=== PATIENT | female | born 2005 | race Caucasian/White ===

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

== ENCOUNTER → 2025-06-13 | Outpatient (REF) | payer OTHER | LOC: M SFHCPLAZ 12:41 | PROVIDERS: ATTEND Nurse Practitioner Family | DX: R05.9 Cough, unspecified (principal) ==

== ENCOUNTER → 2025-07-10 | Outpatient (CLI) | payer OTHER | LOC: M WUC 11:08 | DX: M25.562 Pain in left knee (principal) ==